=== PATIENT | male | born 1950 | race Hispanic/Latino ===

== ENCOUNTER 2021-05-07 20:31 | Emergency (ER) | payer OTHER ==
[2021-05-07 21:10] LABS: #Eosinphils 0.1 thou/uL (0.0-0.7); #Lymphocytes 2.6 thou/uL (1.20-3.40); #Monocytes 0.3 thou/uL (0.11-0.59); #Neutrophils 5.5 thou/uL (1.40-6.50); %Basophils 0.3 % (0.0-1.0); %Lymphocytes 30.8 % (21.0-51.0); %Monocytes 3.8 % (0.0-10.0); %Neutrophils 64.1 % (42.0-75.0); Hemoglobin 13.6 g/dL (14.0-18.0); Mean Corpuscular HGB CONC 31.3 g/dL (32.0-36.0); Mean Corpuscular Hemoglobin 26.4 pg (27.0-31.0); Mean Corpuscular Volume 84.2 fL (78.0-98.0); Platelet Count 193 thou/uL (130-400); Red Blood Cell (RBC) Count 5.14 mill/uL (4.70-6.10); White Blood Cell (WBC) Count 8.5 thou/uL (4.8-10.8)
[2021-05-07 21:23] LABS: INR-International Normal Ratio 1.2; PTT 32.6 sec (22.9-36.1); Prothrombin Time 14.9 sec (12.0-14.7)
[2021-05-07 21:28] LABS: ALT (SGPT) 59 U/L (8-55); AST (SGOT) 52 U/L (5-34); Albumin 3.8 g/dL (3.4-4.8); Alkaline Phosphatase 89 U/L (40-110); Anion Gap 15 mmol/L (10-20); BUN (Urea Nitrogen) 12 mg/dL (8.4-25.7); Bilirubin, Total 0.6 mg/dL (0.2-1.2); Calc. Creatinine Clearance 0 mL/min (70-130); Calcium 9.3 mg/dL (7.8-10.44); Carbon Dioxide 24 mmol/L (23-31); Chloride 103 mmol/L (98-107); Globulin 3.8 g/dL (2.4-3.5); Glucose 316 mg/dL (83-110); Potassium 4.5 mmol/L (3.5-5.1); Protein, Total 7.6 g/dL (5.8-8.1); Sodium 137 mmol/L (136-145)
[2021-05-07] MEDS ORDERED: Metoclopramide HCl 10 MG/2 ML VIAL ONE (21:31)
[2021-05-07] MEDS ORDERED: diphenhydrAMINE 50 MG/ML VIAL ONE (21:31)
[2021-05-07] MEDS ORDERED: Sodium Chloride 0.9% 100 ML ONE (21:31)
[2021-05-07] MEDS ORDERED: Carvedilol 25 MG TAB ONE (23:03)
[2021-05-07] MEDS ORDERED: Furosemide 40 MG TAB ONE (23:03)
[2021-05-08] MEDS ORDERED: metFORMIN 500 MG TAB ONE (10:27)
[2021-05-08] MEDS ORDERED: Aspirin 325 MG TAB ONE (10:27)
[2021-05-08] MEDS ORDERED: Furosemide 40 MG TAB ONE (10:27)
[2021-05-08] MEDS ORDERED: Carvedilol 25 MG TAB ONE (10:27)
[2021-05-08] MEDS ORDERED: Insulin Regular 300 UNITS/3 ML VIAL ONE (10:27)
[2021-05-08] MEDS ORDERED: Levothyroxine Sodium 75 MCG TAB PO SCH (10:30)
[2021-05-08] MEDS ORDERED: diphenhydrAMINE 50 MG/ML VIAL IVP SCH (10:30)
[2021-05-08] MEDS ORDERED: Furosemide 40 MG TAB PO SCH (10:30)
[2021-05-08] MEDS ORDERED: Levothyroxine Sodium 100 MCG TAB PO SCH (10:30)
[2021-05-08] MEDS ORDERED: metFORMIN 500 MG TAB PO SCH (10:30)
[2021-05-08] MEDS ORDERED: Aspirin 325 MG TAB PO SCH (10:30)
[2021-05-08] MEDS ORDERED: Carvedilol 6.25 MG TAB PO SCH (10:30)
[2021-05-08] MEDS ORDERED: Insulin Regular 300 UNITS/3 ML VIAL SC SCH (10:30)
[2021-05-08] MEDS ORDERED: Metoclopramide HCl 10 MG/2 ML VIAL IVP SCH (10:30)
[2021-05-08] MEDS ORDERED: Pantoprazole 40 MG GRANULES PACKET PO SCH (10:30)
[2021-05-08] MEDS ORDERED: NPH, Human Insulin Isophane 300 UNIT/3 ML VIAL SC SCH (10:30)
[2021-05-08] MEDS ORDERED: Lorazepam 2 MG/ML VIAL ONE (11:39)
[2021-05-08] MEDS ORDERED: levETIRAcetam 500 MG/100 ML PREMIX BAG ONE (12:21)
== END 2021-05-08 15:13 | disposition short-term general hospital (02) ==
LOC: NAV ERS 20:31
DX: G45.9 Transient cerebral ischemic attack, unspecified (principal); R29.703 NIHSS score 3; R29.701 NIHSS score 1; R47.1 Dysarthria and anarthria; I25.10 Atherosclerotic heart disease of native coronary artery without angina pectoris; E11.9 Type 2 diabetes mellitus without complications; E03.9 Hypothyroidism, unspecified; E78.5 Hyperlipidemia, unspecified; I10 Essential (primary) hypertension; Z87.891 Personal history of nicotine dependence; Z79.82 Long term (current) use of aspirin; Z79.4 Long term (current) use of insulin; Z79.84 Long term (current) use of oral hypoglycemic drugs
CPT/HCPCS: 70450; 84484; 85610; 85730; 93005; 96365; 96375; J1200; J1815; J1953; J2060; J2765

== ENCOUNTER 2021-10-24 07:46 | Emergency (ER) | payer OTHER ==
[2021-10-24] MEDS ORDERED: Insulin Regular 300 UNITS/3 ML VIAL ONE (08:49)
[2021-10-24 09:25] LABS: ALT (SGPT) 55 U/L (8-55); AST (SGOT) 34 U/L (5-34); Alkaline Phosphatase 79 U/L (40-110); Anion Gap 15 mmol/L (10-20); BUN (Urea Nitrogen) 13 mg/dL (8.4-25.7); Bilirubin, Total 0.5 mg/dL (0.2-1.2); Calc. Creatinine Clearance 0 mL/min (70-130); Calcium 9.3 mg/dL (7.8-10.44); Carbon Dioxide 23 mmol/L (23-31); Chloride 102 mmol/L (98-107); Globulin 3.4 g/dL (2.4-3.5); Glucose 413 mg/dL (83-110); Lipase 19 U/L (8-78); Potassium 4.1 mmol/L (3.5-5.1); Protein, Total 7.4 g/dL (5.8-8.1); Sodium 136 mmol/L (136-145)
[2021-10-24 09:27] LABS: #Basophils 0.1 thou/uL (0.0-0.2); #Eosinphils 0.2 thou/uL (0.0-0.7); #Lymphocytes 3.5 thou/uL (1.20-3.40); #Monocytes 0.5 thou/uL (0.11-0.59); #Neutrophils 5.3 thou/uL (1.40-6.50); %Eosinophils 1.9 % (0.0-10.0); %Lymphocytes 36.7 % (21.0-51.0); %Monocytes 5.3 % (0.0-10.0); %Neutrophils 55.2 % (42.0-75.0); Mean Corpuscular HGB CONC 30.5 g/dL (32.0-36.0); Mean Corpuscular Hemoglobin 26.4 pg (27.0-31.0); Mean Corpuscular Volume 86.5 fL (78.0-98.0); Mean Platelet Volume 10.9 fL (7.4-10.4); Platelet Count 177 thou/uL (130-400); RBC Distribution Width 12.3 % (11.5-14.5); White Blood Cell (WBC) Count 9.6 thou/uL (4.8-10.8)
[2021-10-24 09:43] LABS: Bilirubin Negative (Negative); Clarity Clear (Clear); Glucose, Urine (Dipstick) 500 mg/dL (Negative); Ketone, Urine Negative (Negative); Leukocyte Negative (Negative); Nitrite Negative (Negative); Protein, Urine (Dipstick) Negative (Neg-Trace); Specific Gravity, Urine 1.015 (1.005-1.030); Urobilinogen 0.2 mg/dL (Less than 2); pH, Urine 5.5 (5.0-9.0)
[2021-10-24 09:44] LABS: Blood, Urine Negative (Negative)
== END 2021-10-24 10:25 | disposition home or self-care (01) ==
LOC: NAV ERS 07:46
DX: E11.65 Type 2 diabetes mellitus with hyperglycemia (principal); R10.9 Unspecified abdominal pain; I25.10 Atherosclerotic heart disease of native coronary artery without angina pectoris; E03.9 Hypothyroidism, unspecified; E78.5 Hyperlipidemia, unspecified; E78.00 Pure hypercholesterolemia, unspecified; I10 Essential (primary) hypertension; E66.9 Obesity, unspecified; Z87.19 Personal history of other diseases of the digestive system; Z87.891 Personal history of nicotine dependence; Z68.45 Body mass index [BMI] 70 or greater, adult; Z79.4 Long term (current) use of insulin; Z79.899 Other long term (current) drug therapy
CPT/HCPCS: 36416; 80053; 81003; 83690; 84484; 85025; 99285; J1815

== ENCOUNTER 2025-04-08 06:07 | Emergency (ER) | payer OTHER ==
[2025-04-08 06:48] LABS: #Basophils 0.1 thou/uL (0.0-0.2); #Eosinophils 0.3 thou/uL (0.0-0.7); #Lymphocytes 3.6 thou/uL (1.20-3.40); #Monocytes 0.6 thou/uL (0.11-0.59); #Neutrophils 5.0 thou/uL (1.40-6.50); %Basophils 1.0 % (0.0-1.0); %Eosinophils 3.1 % (0.0-10.0); %Lymphocytes 37.8 % (21.0-51.0); %Monocytes 5.8 % (0.0-10.0); %Neutrophils 52.4 % (42.0-75.0); Hematocrit 36.1 % (42.0-52.0); Hemoglobin 12.2 g/dL (14.0-18.0); Mean Corpuscular Hemoglobin 26.1 pg (27.0-31.0); Mean Corpuscular Volume 77.3 fl (78.0-98.0); Platelet Count 182 10x3/uL (130-400); Red Blood Cell (RBC) Count 4.67 mill/uL (4.70-6.10); White Blood Cell (WBC) Count 9.6 10x3/uL (4.8-10.8)
[2025-04-08 07:03] LABS: Troponin I 0.010 ng/mL (< 0.028)
[2025-04-08 07:04] LABS: ALT (SGPT) 45 U/L (Less than 45); AST (SGOT) 64 U/L (11-34); Albumin 3.5 g/dL (3.1-4.5); Alkaline Phosphatase 65 U/L (40-110); Anion Gap 14 mmol/L (10-20); BUN (Urea Nitrogen) 18 mg/dL (8.4-25.7); Bilirubin, Total 0.5 mg/dL (0.3-1.2); Calc. Creatinine Clearance 0 mL/min (70-130); Calcium 8.3 mg/dL (7.8-10.44); Carbon Dioxide 25 mmol/L (23-31); Chloride 101 mmol/L (98-107); Globulin 3.5 g/dL (2.4-3.5); Glucose 253 mg/dL (83-110); Lipase 17 U/L (8-78); Magnesium 1.8 mg/dL (1.6-2.6); Potassium 3.8 mmol/L (3.5-5.1); Sodium 136 mmol/L (136-145)
[2025-04-08 08:02] LABS: Glucose, Urine (Dipstick) 100 mg/dL (Negative); Leukocyte Negative (Negative); Protein, Urine (Dipstick) Negative (Neg-Trace); Specific Gravity, Urine 1.010 (1.005-1.030)
[2025-04-08 08:07] LABS: Bacteria/HPF None Seen HPF (None Seen); CAUTI Indications for Culture Pelvic or flank pain; RBC/HPF None Seen HPF (0-3); WBC/HPF None Seen HPF (0-3)
[2025-04-08 08:08] LABS: Urine Culture Reflex No No
[2025-04-08] MEDS ORDERED: Iopamidol 370 76% 100 ML VIAL ONE (09:00)
== END 2025-04-08 11:56 | disposition short-term general hospital (02) ==
LOC: EEVIPCON 06:07 → NAV ERS 06:07
DX: R42 Dizziness and giddiness (principal); R29.701 NIHSS score 1; R10.9 Unspecified abdominal pain; D64.9 Anemia, unspecified; I11.0 Hypertensive heart disease with heart failure; I50.9 Heart failure, unspecified; E11.9 Type 2 diabetes mellitus without complications; Z87.891 Personal history of nicotine dependence; Z79.4 Long term (current) use of insulin
CPT/HCPCS: 70450; 71045; 71260; 74177; 80053; 81001; 83605; 83690; 83735; 83880; 84484; 85025; 93005; 94760; J7030; Q9967